=== PATIENT | female | born 1970 | race Caucasian/White ===

== ENCOUNTER 2016-12-19 18:36 | Emergency (ER) | payer BC ==
[2016-12-19 20:39] VITALS: BP 137/87
--- NOTE | 2016-12-19 21:18 | UC ---
Skin Complaint HPI - HPI Summary HPI Summary: PT HAS A KNOWN BAT INFESTATION IN HER ATTIC. SHE DID HAVE A BAT THAT MADE IT INTO THE LIVING SPACE THIS PAST WINTER AGO BUT SHE CHASED IT OUT. SEVERAL DAYS AGO SHE NOTICED 2 PINPOINT MARTINO ON HER LEFT FOREARM - SLIGHTLY ITCHY. IS CONCERNED THAT THIS COULD BE A BAT BITE SO SHE CAME HERE FOR EVAL. NO BAT IN LIVING SPACE NOTED. - History of Current Complaint Chief Complaint: UCBiteInjury Time Seen by Provider: 12/19/16 21:02 Stated Complaint: POSS BAT BITE Hx Obtained From: Patient Onset/Duration: Sudden Onset, Lasting Days, Still Present Timing: Constant Onset Severity: Mild Current Severity: Mild Pain Intensity: 0 Pain Scale Used: 0-10 Numeric Location: Discrete - LEFT FOREARM Character: Pruritus Aggravating: Nothing Alleviating: Nothing Associated Signs & Symptoms: Positive: Negative - Allergy/Home Medications Allergies/Adverse Reactions: Allergies Allergy/AdvReac Type Severity Reaction Status Date / Time Erythromycin Allergy POSSIBLE Verified 12/19/16 18:53 HALLUCINATIONS Miconazole [From Monistat] Allergy SYMPTOMS Verified 12/19/16 18:53 OF YEAST INFECTION Tetracyclines Allergy VIOLENT Verified 12/19/16 18:53 NAUSEA,VOMITING, DIARRHEA Tolnaftate [From Tinactin] Allergy POSSIBLE Verified 12/19/16 18:53 HALLUCIATIONS Home Medications: Home Medications Gabapentin CAP(*) [Neurontin 100 mg CAP(*)] 100 mg PO EVERY OTHER DAY 12/19/16 [ History Confirmed 12/19/16] Review of Systems Constitutional: Negative Skin: Other - PINPOINT MARTINO ON LEFT FOREARM Respiratory: Negative Cardiovascular: Negative Gastrointestinal: Negative All Other Systems Reviewed And Are Negative: Yes PMH/Surg Hx/FS Hx/Imm Hx Other Neurological History: TRIGEMINAL NEURALGIA - Surgical History Surgical History: Yes Surgery Procedure, Year, and Place: 1986 RIGHT OVARIAN CYST REMOVED, PARTIAL OOPHERECTOMY, [facility]. 1971 TONSILLECTOMY, [facility]. 1987 OR 1988 WISDOM TEETH EXTRACTION, [facility]OBABLY [facility]. 2010 DIAGNOSTIC LAPAROSCOPY, [facility] [id number] - Family History Known Family History: Positive: Cardiac Disease, Hypertension Negative: Blood Disorder - Social History Alcohol Use: Occasionally Substance Use Type: None Smoking Status (MU): Never Smoked Tobacco - Immunization History Most Recent Influenza Vaccination: 2011 Most Recent Tetanus Shot: WITHIN LAST 2 YEARS Most Recent Pneumonia Vaccination: NA Physical Exam Triage Information Reviewed: Yes Appearance: Well-Appearing, No Pain Distress, Well-Nourished Vital Signs: Initial Vital Signs Temp 97.7 F 12/19/16 18:49 Pulse 74 12/19/16 18:49 Resp 18 12/19/16 18:49 BP 124/74 12/19/16 18:49 Pulse Ox 100 12/19/16 18:49 Vital Signs Reviewed: Yes Eyes: Positive: Conjunctiva Clear ENT: Positive: Hearing grossly normal Neck: Positive: Supple Respiratory: Positive: No respiratory distress, No accessory muscle use Cardiovascular: Positive: Pulses Normal Abdomen Description: Positive: Soft Musculoskeletal: Positive: No Edema Neurological: Positive: Alert Psychological: Positive: Age Appropriate Behavior Skin: Positive: Other - 2 PINPOINT MARTINO ON LEFT FOREARM 2 MM APART. NO EXCORIATION OR SWELLING. NOT TENDER. NO CLEAR BREAK IN SKIN Course/Dx - Course Course Of Treatment: HD CALLED BY RN. CASE DISCUSSED. NOT CONSIDERED BAT EXPOSURE. RABIES PROPHYLAXIS NOT INDICATED. - Diagnoses Provider Diagnoses: SKIN IRRITATION LEFT FOREARM Discharge - Discharge Plan Condition: Stable Disposition: HOME Referrals: Dhruv Mireles MD [Primary Care Provider] - If Needed Additional Instructions: GIVEN NO BAT IN LIVING SPACE AND NO DEFINITE BREAK IN SKIN, RABIES PROPHYLAXIS WAS NOT RECOMMENDED BY THE HEALTH DEPARTMENT. SHOULD YOU ENCOUNTER A BAT IN THE LIVING SPACE PLEASE CALL THE HEALTH DEPARTMENT RIGHT AWAY FOR FURTHER INSTRUCTION.
== END 2016-12-19 21:50 | disposition home or self-care (01) ==
LOC: UCEAST 18:36
DX: L98.9 Disorder of the skin and subcutaneous tissue, unspecified (principal); G50.0 Trigeminal neuralgia; Z88.1 Allergy status to other antibiotic agents
CPT/HCPCS: 99211; G0463

== ENCOUNTER 2017-10-21 03:31 | Emergency (ER) | payer BC ==
[2017-10-21] MEDS ORDERED: HYDROmorphone INJ* 2 MG/ML CARPUJECT SYRINGE IV SLOW PU ONE (03:48)
[2017-10-21] MEDS ORDERED: Metoclopramide IV* 5 MG/ML 2 ML VIAL IV SLOW PU ONE (03:48)
[2017-10-21] MEDS ORDERED: NS 0.9% 1000 ML* 1,000 ML IV ONE (03:49)
[2017-10-21 04:11] LABS: ABS Basophils 0.1 10^3/ul (0-0.2); ABS Eosinophils 0.1 10^3/ul (0-0.6); ABS Lymphocytes 2.9 10^3/ul (1.0-4.8); ABS Monocytes 0.7 10^3/ul (0-0.8); ABS Neutrophils 3.7 10^3/ul (1.5-7.7); ABS Nucleated RBC 0 10^3/ul; Eosinophil % 1.5 % (0-6); Hematocrit 39 % (35-47); Hemoglobin 13.7 g/dl (12.0-16.0); Lymphocyte % 39.1 % (25-47); Mean Corpuscular HGB Conc 35 g/dl (31-36); Mean Corpuscular Hemoglobin 31 pg (27-31); Mean Corpuscular Volume 88 fL (80-97); Mean Platelet Volume 8.8 um3 (7.4-10.4); Nucleated Red Blood Cells % 0; Platelet Count 212 10^3/ul (150-450); Red Blood Count 4.39 10^6/ul (4.00-5.40); Red Cell Distribution Width 13 % (10.5-15); White Blood Count 7.4 10^3/ul (3.5-10.8)
[2017-10-21 04:34] LABS: EGFR Non-African American 84.7 (>60)
[2017-10-21 05:00] LABS: Urine Appearance Clear; Urine Blood Negative (Negative); Urine Color Yellow; Urine Ketones Negative (Negative); Urine Protein Negative (Negative); Urine Specific Gravity 1.016 (1.010-1.030); Urine Urobilinogen Negative (Negative)
--- NOTE | 2017-10-21 06:45 | ED ---
Marylou Heaton Emily, scribed for Sheldon Cheng MD on 10/21/17 at 0353 . Abdominal Pain/Female - HPI Summary HPI Summary: This patient is a 47 year old F presenting to 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 The patient rates the pain 8/10 in severity. Symptoms aggravated by nothing. Symptoms alleviated by nothing. Patient reports nausea. Pt reports she has had previous abdominal surgery, hysterectomy and ovarian cyst removal. - History of Current Complaint Chief Complaint: EDAbdPain Stated Complaint: ABD PAIN Time Seen by Provider: 10/21/17 03:39 Hx Obtained From: Patient ?: No Onset/Duration: Sudden Onset, Lasting Hours, Still Present Timing: Constant Severity Initially: Severe Severity Currently: Severe Pain Intensity: 8 Pain Scale Used: 0-10 Numeric Location: Discrete At: RUQ Radiates: Yes Radiates to: Back Aggravating Factor(s): Nothing Alleviating Factor(s): Nothing Associated Signs and Symptoms: Positive: Nausea Allergies/Adverse Reactions: Allergies Allergy/AdvReac Type Severity Reaction Status Date / Time erythromycin base AdvReac See Comment Verified 10/21/17 03:45 gabapentin AdvReac Hallucinati Verified 10/21/17 03:45 ons indomethacin AdvReac GI Upset Verified 10/21/17 03:45 miconazole AdvReac See Comment Verified 10/21/17 03:45 Tetracyclines AdvReac Nausea And Verified 10/21/17 03:45 Vomiting tolnaftate AdvReac See Comment Verified 10/21/17 03:45 PMH/Surg Hx/FS Hx/Imm Hx Previously Healthy: No Endocrine/Hematology History: Denies: Hx Diabetes, Hx Thyroid Disease Cardiovascular History: Denies: Hx Hypertension, Hx Pacemaker/ICD Respiratory History: Denies: Hx Asthma, Hx Chronic Obstructive Pulmonary Disease (COPD) GI History: Denies: Hx Ulcer History: Denies: Hx Renal Disease Musculoskeletal History: Reports: Hx Back Problems Denies: Hx Scoliosis Sensory History: Denies: Hx Contacts or Glasses, Hx Hearing Aid Opthamlomology History: Denies: Hx Contacts or Glasses Neurological History: Reports: Hx Headaches - TRIGEMINAL NEURALGIA, Other Neuro Impairments/Disorders - BULDGING DISCS LSP, PAIN CLINIC PATIENT Psychiatric History: Denies: Hx Panic Disorder - Cancer History Hx Chemotherapy: No Hx Radiation Therapy: No - Surgical History Surgery Procedure, Year, and Place: 1986 RIGHT OVARIAN CYST REMOVED, PARTIAL OOPHERECTOMY, [facility]. 1971 TONSILLECTOMY, [facility]. 1987 OR 1988 WISDOM TEETH EXTRACTION, [facility]. 2010 DI[address]NO[address] LAP[address], [facility]. [id number] Hx Anesthesia Reactions: No Infectious Disease History: No Infectious Disease History: Denies: Hx Clostridium Difficile, Hx Hepatitis, Hx Human Immunodeficiency Virus (HIV), Hx of Known/Suspected MRSA, Hx Shingles, Hx Tuberculosis, Hx Known/ Suspected VRE, Hx Known/Suspected VRSA, History Other Infectious Disease, Traveled Outside the in Last 30 Days - Family History Known Family History: Positive: Cardiac Disease, Hypertension Negative: Blood Disorder - Social History Occupation: Unemployed Lives: With Family Alcohol Use: Occasionally Hx Substance Use: No Substance Use Type: Reports: None Hx Tobacco Use: No Smoking Status (MU): Never Smoked Tobacco Review of Systems Negative: Fever Positive: Abdominal Pain, Nausea All Other Systems Reviewed And Are Negative: Yes Physical Exam - Summary Physical Exam Summary: VITAL SIGNS: Reviewed. GENERAL: Patient is a well-developed and nourished female who is lying comfortable in the stretcher. Patient is not in any acute respiratory distress. HEAD AND FACE: No signs of trauma. No ecchymosis, hematomas or skull depressions. No sinus tenderness. EYES: PERRLA, EOMI x 2, No injected conjunctiva, no nystagmus. EARS: Hearing grossly intact. Ear canals and tympanic membranes are within normal limits. MOUTH: Oropharynx within normal limits. NECK: Supple, trachea is midline, no adenopathy, no JVD, no carotid bruit, no c- spine tenderness, neck with full ROM. CHEST: Symmetric, no tenderness at palpation LUNGS: Clear to auscultation bilaterally. No wheezing or crackles. CVS: Regular rate and rhythm, S1 and S2 present, no murmurs or gallops appreciated. ABDOMEN: Soft, RUQ tenderness. No signs of distention. No rebound no guarding, and no masses palpated. Bowel sounds are normal. EXTREMITIES: FROM in all major joints, no edema, no cyanosis or clubbing. NEURO: Alert and oriented x 3. No acute neurological deficits. Speech is normal and follows commands. SKIN: Dry and warm Triage Information Reviewed: Yes Vital Signs On Initial Exam: Initial Vitals Temp Pulse Resp BP Pulse Ox 98.0 F 82 22 143/69 100 10/21/17 03:33 10/21/17 03:33 10/21/17 03:33 10/21/17 03:33 10/21/17 03:33 Vital Signs Reviewed: Yes Diagnostics - Vital Signs Vital Signs Temp Pulse Resp BP Pulse Ox 10/21/17 03:33 98.0 F 82 22 143/69 100 - Laboratory Result Diagrams: 10/21/17 03:58 10/21/17 03:58 Lab Statement: Any lab studies that have been ordered have been reviewed, and results considered in the medical decision making process. Re-Evaluation - Re-Evaluation First Eval Re-Evaluation Time: 05:30 Change: Improved Comment: Pt reports that she is pain free at this time, but would like to wait for ultrasound. 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 Bloodwork and UA obtained. Pt requests to wait for ultrasound. In the ED course the patient was given fluids, hydromorphone, and Reglan. The patient will be signed out to Dr. Mcdonald upon shift changed pending ultrasound. The patient is agreeable with this plan. - Diagnoses Provider Diagnoses: Abdominal pain, Biliary colic Discharge - Sign-Out/Discharge Documenting (check all that apply): Sign-Out Patient Signing out patient TO: Tommy Mejia - Upon shift change pending ultrasound - Discharge Plan Condition: Stable Discharge Disposition Comment: Patient will be signed out to Dr. Mejia upon shift changed pending ultraso The documentation as recorded by the Marylou reyna Emily accurately reflects the service I personally performed and the decisions made by me, Sheldon Cheng MD.
--- NOTE | 2017-10-21 07:59 | RAD ---
Indication: Gallstones. Real-time sonography of the right upper quadrant was performed. The liver is normal in size. No focal lesions or intrahepatic ductal dilatation is noted. The gallbladder demonstrates multiple echogenic foci with posterior acoustic shadowing. Small gallbladder polyp is noted. The polyp measures 3 mm. The common duct measures 6 mm. The right kidney measures 11.3 x 3.9 x 4.9 cm. There is a cyst in the lower pole of the right kidney measuring 2.2 x 1.9 x 1.8 cm. No hydronephrosis is noted. The pancreas demonstrates no mass effect or ductal dilatation. Aorta and inferior vena cava are unremarkable. IMPRESSION: Cholelithiasis without evidence of biliary duct dilatation. May be a small 3 mm gallbladder polyp is noted.
[2017-10-21 08:42] VITALS: BP 119/70
--- NOTE | 2017-10-21 09:06 | ED ---
Ebony Heaton Tenzin, scribed for Tommy Mejia on 10/21/17 at 0713 . 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 Bloodwork and UA obtained. Pt is a sign out from Dr. Sheldon Cheng due to the shift change. pt has cholelithiaisis and no infection so will dc home on analgesics and to follow up with surgery alfonso for further mangement. pt agress with the plan. - Results/Orders Results/Orders: ABDOMEN ULTRASOUND IMPRESSION: Cholelithiasis without evidence of biliary duct dilatation. May be a small 3 mm gallbladder polyp is noted. Re-Evaluation - Re-Evaluation First Eval Re-Evaluation Time: 05:30 Change: Improved Comment: Pt reports that she is pain free at this time, but would like to wait for ultrasound. 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 Bloodwork and UA obtained. Pt requests to wait for ultrasound. In the ED course the patient was given fluids, hydromorphone, and Reglan. The patient will be signed out to Dr. Mcdonald upon shift changed pending ultrasound. The patient is agreeable with this plan. - Diagnoses Provider Diagnoses: Abdominal pain, Biliary colic, Cholelithiasis Discharge - Sign-Out/Discharge Documenting (check all that apply): Discharge/Admit/Transfer, Receiving Sign-Out Receiving patient FROM: Sheldon Cheng - awaiting US report. - Discharge Plan Condition: Stable Disposition: HOME Prescriptions: Tramadol HCl [Ultram] 50 mg PO TID #12 tablet MDD 3 Patient Education Materials: Gallstones (ED) Referrals: Maribell Talbert DO [Primary Care Provider] - Alejandro Robertson MD [Medical Doctor] - 3 Days Additional Instructions: Follow up with PCP in three days. Return to the emergency department for any new or worsening symptoms. - Billing Disposition and Condition Condition: STABLE Disposition: Home The documentation as recorded by the Ebony reyna Tenzin accurately reflects the service I personally performed and the decisions made by Jackie solis Emmanuel.
== END 2017-10-21 08:43 | disposition home or self-care (01) ==
LOC: ED 03:31
DX: R10.11 Right upper quadrant pain (principal); K80.50 Calculus of bile duct without cholangitis or cholecystitis without obstruction; K80.20 Calculus of gallbladder without cholecystitis without obstruction; R11.0 Nausea; G50.0 Trigeminal neuralgia; Z88.1 Allergy status to other antibiotic agents; Z88.8 Allergy status to other drugs, medicaments and biological substances; Z82.49 Family history of ischemic heart disease and other diseases of the circulatory system
CPT/HCPCS: 36415; 76705; 80053; 81003; 82150; 83690; 85025; 86140; 96374; 96375; 99283; J1170; J2765

== ENCOUNTER → 2017-10-28 07:10 | Day surgery (SDC) | payer BC ==
[~2017-10-28 07:10] MED LIST: Acetaminophen IV 1GM/100ML * 100 ML ONE; Buffered Lidocaine 0.9% SYRIN* 5 ML/SYR SYRINGE INTRADERM ONE; Buffered Lidocaine 0.9% SYRIN* 5 ML/SYR SYRINGE ONE; Bupivacaine 0.5% SDV PF* 30ML VIAL ONE; Desflurane* 240 ML INH ONE; Dexamethasone IV* 4 MG/ML 1 ML (4 MG) IV SLOW PU ONE; Dexamethasone IV* 4 MG/ML 1 ML (4 MG) ONE; Glycopyrrolate IV* 0.2 MG/ML 1 ML VIAL ONE; HYDROmorphone INJ* 0.5 MG/0.5 ML SYRINGE IV PRN; HYDROmorphone INJ* 0.5 MG/0.5 ML SYRINGE ONE; KETAMINE HCL* 50 MG/ML 10 ML VIAL ONE; Ketorolac INJ* 30 MG/ML 1 ML VIAL ONE; Lidocaine 2% PF * 5 ML VIAL ONE; Midazolam* 1 MG/ML 2 ML VIAL (2 MG) ONE; Morphine INJ* 2 MG/ML 1 ML CARPUJECT IV PRN; Naloxone* 0.4 MG/ML 1 ML VIAL IV PRN; Neostigmine Methylsulfate* 1 MG/ML 10 ML VIAL (1 mg/ml) ONE; Ondansetron INJ* 2 MG/ML VIAL IV ONE; Ondansetron INJ* 2 MG/ML VIAL IV PRN; Ondansetron INJ* 2 MG/ML VIAL ONE; PROCHLORPERAZINE INJ 5 MG/ML 2 ML VIAL IV PRN; Propofol* 10 MG/ML 20 ML BTL IV PUSH ONE; Rocuronium* 10 MG/ML VIAL ONE; Scopolamine 1.5 mg* PATCH ONE; Scopolamine 1.5 mg* PATCH TRANSDERM PRN; Scopolamine PATCH Remove* 1 NOTE MISC PATCH OFF ONE; Sodium Citrate/Citric Acid* 15 ML UDC ONE; Sodium Citrate/Citric Acid* 15 ML UDC PO ONE; ceFAZolin 2 GM PREMIX (*) 2 GM/50 ML BAG IVPB ONE; diPHENhydraMINE IV* 50 MG/ML 1 ml VIAL (BENADRYL) IV PRN; fentaNYL* 50 MCG/ML 2 ML VIAL (100 MCG VIAL) IV PRN; fentaNYL* 50 MCG/ML 2 ML VIAL (100 MCG VIAL) ONE; oxyCODONE TAB* 5 MG TAB ONE; oxyCODONE TAB* 5 MG TAB PO PRN
--- NOTE | 2017-10-28 10:45 | BRIEFOPN ---
Brief Operative Note - Surgery Procedures: Procedures OPERATIVE REPORT PRE-OP: Right upper quadrant abdominal pain, gallstones POST-OP: Same PROCEDURE: Laparoscopic cholecystectomy SURGEON: MD Ailyn ANESTHESIA: General with local, Dr. Thornton ASST: S IVF:Min EBL:min SPECIMEN: Gallbladder DRAIN: none WOUND CLASS: 2 COMPLICATIONS: none TO PACU
[2017-10-28 16:44] VITALS: BP 128/68
--- NOTE | 2017-10-28 21:55 | OP ---
DATE OF OPERATION: 10/28/17 - [facility] DATE OF : 66 SURGEON: Alejandro Robertson MD TIN STACKER: LÓPEZ Ramírez ANESTHESIOLOGIST: Dr. Thornton. ANESTHESIA: General with local. PRE-OP DIAGNOSIS: Right upper quadrant abdominal pain and gallstones. POST-OP DIAGNOSIS: Right upper quadrant abdominal pain and gallstones. OPERATIVE PROCEDURE: Laparoscopic cholecystectomy. ESTIMATED BLOOD LOSS: Minimal. WOUND CLASSIFICATION: II. DRAINS: None. COMPLICATIONS: None. SPECIMENS: Gallbladder. DESCRIPTION OF PROCEDURE: Written informed consent was obtained, the abdomen was marked with inedible ink and preoperative antibiotics were administered. The patient was taken to the operating room and placed in the supine position. Sequential compression devices and a warming blanket were applied. The abdomen was prepped and draped in the usual sterile fashion. Time-out verification was completed. Initially, a small transverse incision was made just above the umbilicus to the midline. The peritoneal cavity was entered under direct vision. A 12-mm blunt port was inserted and the abdomen was insufflated to 15 mmHg. Under direct vision, an 11-mm epigastric port was placed and two 5-mm ports were placed in the right side of the abdominal wall. The gallbladder was identified. There was omentum that was adherent to it which was taken down sharply. However, the gallbladder wall appeared to be thin without evidence of acute or chronic inflammation, but did appear to contain gallstones. With care, the peritoneum along the medial and lateral aspects of the gallbladder and the infundibulum was divided and the cystic duct and cystic artery were carefully dissected free and identified as they entered the gallbladder. I took a considerable portion of the inferior part of the gallbladder off the liver bed using the critical view technique to assure myself of these two structures. The cystic duct appeared to be of expected caliber. The cystic duct and artery were then doubly clipped and divided. The gallbladder was removed from the liver bed using electrocautery and brought out through the umbilical incision in an EndoCatch bag. The right upper quadrant was inspected and hemostasis was assured. All ports were removed under direct vision of the camera. There was no abdominal wall bleeding. The umbilical fascia was closed with interrupted 0 Vicryl suture. The skin at all 4 incisions were approximated with subcuticular 4-0 Vicryl suture. Steri-Strips were applied. The patient tolerated the procedure well, was taken to the recovery room in stable condition. [id number]/[facility] #: [id number] ALAYNA
== END | disposition home or self-care (01) ==
LOC: OR 07:10
PROVIDERS: ATTEND Surgery
DX: K80.10 Calculus of gallbladder with chronic cholecystitis without obstruction (principal); R00.2 Palpitations; G43.819 Other migraine, intractable, without status migrainosus; G50.0 Trigeminal neuralgia
CPT/HCPCS: 88304; A9270-GY; J0690; J1100; J1170; J1885; J2250; J2405; J2704; J2710; J3010